=== PATIENT | male | born 1960 | race Caucasian/White ===

== ENCOUNTER 2021-07-31 12:08 | Inpatient (IN) | payer OTHER ==
[2021-07-31] MEDS ORDERED: diphenhydrAMINE 50 MG/ML 1 ML VIAL IVP STA ×2 (13:34→15:20)
[2021-07-31] MEDS ORDERED: diphenhydrAMINE 50 MG/ML 1 ML VIAL ONE ×2 (13:35→15:21)
[2021-07-31] MEDS ORDERED: ALPRAZolam 0.25 MG TAB ONE (13:36)
[2021-07-31] MEDS ORDERED: NITROGLYCERIN SL TABS 0.4 MG TAB SUBLINGUAL PRN (13:41)
[2021-07-31] MEDS ORDERED: ALPRAZolam 0.5 MG TAB PO PRN (13:41)
[2021-07-31] MEDS ORDERED: ALPRAZolam 0.25 MG TAB PO PRN (13:41)
[2021-07-31] MEDS: SODIUM CHLORIDE 0.9% 1,000 ML in EMPTY BAG 1 BAG IV SCH (13:45)
[2021-07-31] MEDS ORDERED: SODIUM CHLORIDE 0.9% 1,000 ML IV ONE (14:00)
[2021-07-31] MEDS ORDERED: ACETAMINOPHEN TAB 325 MG TAB PO PRN (15:30)
[2021-07-31] MEDS ORDERED: IPRATROPIUM-ALBUTEROL 3 ML NEB INHALATION PRN (15:38)
[2021-07-31] MEDS ORDERED: LORazepam 2 MG/ML INJ IV PRN (15:42)
[2021-07-31] MEDS ORDERED: HEPARIN SOD,PORK IN 0.45% NACL 25,000 UNIT in 0.45% NACL 1 250ML.BAG IV SCH (16:00)
[2021-07-31] MEDS: NITROGLYCERIN-D5W PMX 50 MG in DEXTROSE/WATER 1 250ML.BAG IV SCH (16:59)
[2021-07-31 18:18] LABS: Basophils % (A) 0 %; Eosinophils # (A) 0.1 k/uL (0-0.7); Eosinophils % (A) 1 %; HCT 43.5 % (39.0-53.0); HGB 14.6 gm/dL (13.0-17.5); Lymphocytes % (A) 14 %; MCH 33.6 pg (25.0-35.0); MCHC 33.6 g/dL (31.0-37.0); MCV 99.9 fL (80.0-100.0); Mean Platelet Volume 9.2; Monocytes # (A) 0.4 k/uL (0-1.0); Monocytes % (A) 5 %; Neutrophils # (A) 5.9 k/uL (1.3-7.7); Neutrophils % (A) 78 %; Platelet Count 196 k/uL (150-450); RBC 4.35 m/uL (4.30-5.90); RDW 13.5 % (11.5-15.5); WBC 7.6 k/uL (3.8-10.6)
[2021-07-31 18:37] LABS: INR 0.9 (<1.2); Prothrombin Time 10.3 sec (9.0-12.0)
[2021-07-31 18:39] LABS: Partial Thromboplastin Time 19.5 sec (22.0-30.0)
[2021-07-31] MEDS: diphenhydrAMINE 50 MG CAP PO PRN (19:24)
[2021-07-31] MEDS: METOPROLOL TARTRATE 50 MG TAB PO SCH (20:41)
[2021-07-31] MEDS: PANTOPRAZOLE 40 MG TABLET PO SCH (20:41)
[2021-07-31] MEDS: GABAPENTIN 300 MG CAP PO SCH (20:41)
[2021-07-31] MEDS: QUEtiapine 100 MG TAB PO SCH (20:42)
[2021-07-31 22:30] LABS: Glucose,Whole Blood 129 mg/dL (75-99)
[2021-08-01] MEDS: SODIUM CHLORIDE 0.9% 1,000 ML in EMPTY BAG 1 BAG IV SCH ×2 (02:39→14:34)
[2021-08-01] MEDS ORDERED: HEPARIN SODIUM,PORCINE 2,500 UNIT in SODIUM CHLORIDE 0.9% 250 ML IRRIGATION PRN (07:00)
[2021-08-01] MEDS ORDERED: HEPARIN SODIUM,PORCINE 10,000 UNIT in SODIUM CHLORIDE 0.9% 1,000 ML IRRIGATION PRN (07:00)
[2021-08-01 07:22] LABS: Basophils % (A) 0 %; Eosinophils # (A) 0.2 k/uL (0-0.7); Eosinophils % (A) 2 %; HCT 43.3 % (39.0-53.0); HGB 13.8 gm/dL (13.0-17.5); Lymphocytes # (A) 1.2 k/uL (1.0-4.8); Lymphocytes % (A) 15 %; MCH 32.8 pg (25.0-35.0); MCHC 31.9 g/dL (31.0-37.0); MCV 102.8 fL (80.0-100.0); Macrocytosis Slight; Monocytes # (A) 0.6 k/uL (0-1.0); Monocytes % (A) 7 %; Neutrophils # (A) 6.1 k/uL (1.3-7.7); Neutrophils % (A) 74 %; Platelet Count 160 k/uL (150-450); RBC 4.21 m/uL (4.30-5.90); RDW 12.9 % (11.5-15.5); WBC 8.2 k/uL (3.8-10.6)
[2021-08-01 07:30] LABS: Partial Thromboplastin Time 33.2 sec (22.0-30.0); Prothrombin Time 10.5 sec (9.0-12.0)
[2021-08-01] MEDS ORDERED: MORPHINE SULFATE 2 MG/ML SYRINGE IVP PRN (07:47)
[2021-08-01] MEDS: NITROGLYCERIN-D5W PMX 50 MG in DEXTROSE/WATER 1 250ML.BAG IV SCH ×2 (07:50→14:35)
[2021-08-01] MEDS: ASPIRIN 81 MG PO SCH (07:53)
[2021-08-01] MEDS: CITALOPRAM HYDROBROMIDE 20 MG TAB PO SCH (07:53)
[2021-08-01] MEDS: ARIPiprazole 15 MG TAB PO SCH (07:53)
[2021-08-01] MEDS: PANTOPRAZOLE 40 MG TABLET PO SCH ×2 (07:54→16:41)
[2021-08-01] MEDS: QUEtiapine 100 MG TAB PO SCH (07:54)
[2021-08-01] MEDS: METOPROLOL TARTRATE 50 MG TAB PO SCH ×2 (07:54→20:20)
[2021-08-01] MEDS: GABAPENTIN 300 MG CAP PO SCH ×2 (07:54→20:20)
[2021-08-01] MEDS: TICAGRELOR 90 MG TAB PO SCH ×2 (07:55→20:20)
[2021-08-01] MEDS ORDERED: VERAPAMIL 2.5 MG/ML 2 ML AMP ONE (08:11)
[2021-08-01] MEDS ORDERED: HEPARIN SODIUM 1,000 UN/ML (10ML VL) ONE (08:11)
[2021-08-01] MEDS ORDERED: LIDOCAINE 1% INJ 10MG/ML (20 ML MDV) ONE (08:11)
[2021-08-01] MEDS ORDERED: IV FLUID CONTINUATION 1,000 ML IV ONE (08:12)
[2021-08-01] MEDS ORDERED: fentaNYL (PF) 50 MCG/ML 2 ML AMP ONE (08:15)
[2021-08-01] MEDS ORDERED: MIDAZOLAM 2 MG/2 ML VIAL IV ONE (08:18)
[2021-08-01] MEDS ORDERED: fentaNYL (PF) 50 MCG/ML 2 ML AMP IV ONE (08:18)
[2021-08-01] MEDS ORDERED: LIDOCAINE 1% INJ 10MG/ML (20 ML MDV) SQ ONE (08:20)
[2021-08-01] MEDS ORDERED: VERAPAMIL SYRINGE (5 MG/10 ML) INTRAARTER ONE (08:21)
[2021-08-01] MEDS: HEPARIN SODIUM 1,000 UN/ML (10ML VL) IV ONE ×5 (08:28→09:35)
[2021-08-01] MEDS: NITROGLYCERIN 1000MCG/10ML SYRINGE INTRACORON ONE ×4 (08:32→09:03)
[2021-08-01] MEDS ORDERED: TICAGRELOR 90 MG TAB ONE (08:37)
[2021-08-01] MEDS ORDERED: TICAGRELOR 90 MG TAB PO ONE (08:40)
[2021-08-01] MEDS ORDERED: ASPIRIN 325 MG TAB PO SCH (09:00)
[2021-08-01] MEDS ORDERED: IOPAMIDOL-370 125ML BTL INJ ONE (09:00)
[2021-08-01] MEDS ORDERED: hydrALAZINE HCL 20 MG/ML 1 ML VIAL ONE (09:05)
[2021-08-01] MEDS: hydrALAZINE HCL 20 MG/ML 1 ML VIAL IV ONE ×2 (09:08→09:21)
[2021-08-01] MEDS ORDERED: IOPAMIDOL-370 100ML BTL INJ ONE (09:21)
[2021-08-01] MEDS ORDERED: HEPARIN SODIUM 1,000 UN/ML (10ML VL) IV ONE (09:45)
--- NOTE | 2021-08-01 09:56 | P.PRCINT ---
Percutaneous Coronary Int. - Percutaneous Coronary Intervention Percutaneous Coronary Intervention: PROCEDURES PERFORMED: Left coronary angiography, PCI proximal LAD with 3.5 x 12 mm Xience and overlapping distal with 2.5 x 12mm Xience KIKO INDICATION: Non-STEMI HISTORY: Patient is a pleasant 60-year-old male with CKD who presented to [facility] with chest pain and was found to have non-STEMI. Diagnostic heart catheterization showed obstructive LAD disease and therefore transferred to [facility] for PCI. Due to chronic kidney disease PCI was deferred until 08/01. Patient did develop recurrent chest pain somewhat improved with nitro approximately 30 minutes before scheduled case. CONSENT:I have discussed the risks, benefits and alternative therapies for the above-mentioned procedure and for both sedation/analgesia as well as necessary blood product administration, if indicated, as they pertain to this patient. The patient has indicated understanding and acceptance of the risks and procedures discussed. PROCEDURE: After the risks, benefits and alternatives of the above mentioned procedure explained in detail with the patient, informed consent was obtained. Patient was taken to the catheterization lab and prepped and draped in usual fashion. 1% lidocaine was used to anesthetize the right ulnar artery secondary to patient having a right radial loop. His right radial artery that was accessed yesterday had a palpable 2+ pulse. A 6-Cymro sheath was placed in the right ulnar artery using modified Seldinger technique. A 6-Cymro CLS 3.5 guide was used to engage the left main. A 0.014 BMW wire was passed into the distal LAD. A 2.5 x 12 mm balloon was used to predilate the l esion. A 3.5 x 12 mm Xience KIKO was placed. There was "pinching" of the diagonal branch which appeared mostly related to thrombus which somewhat improved with nitro. The diagonal branch was attempted be wired for approximately 30 minutes without success due to angulation and thrombus. There was more distal lesion and this was treated with a 2.5 x 12 mm Xience KIKO. The overlap and the mid segment of the proximal stent was postdilated with a 3.5 noncompliant balloon. Preintervention there was JAYLIN 2 flow with 95% stenosis and post intervention there was 0% stenosis and JAYLIN 3 flow of the LAD and JAYLIN 2-3 flow of the diagonal branch. The right ulnar sheath was removed and a TR band was placed with hemostasis achieved. The patient tolerated the procedure well. Patient was transported back to the post catheterization holding area in stable condition. Conscious Sedation: Patient was monitored under the direct supervision of vision of myself for conscious sedation using Versed and fentanyl for a total duration of 64 minutes HEMODYNAMICS: Ao: 144/105 SELECTIVE CORONARY ARTERIOGRAPHY: LEFT MAIN: The left main is a large caliber vessel which bifurcates into the LAD and circumflex. There is no significant stenosis. LEFT ANTERIOR DESCENDING CORONARY ARTERY: LAD is a large caliber vessel which wraps around to the apex. There is a proximal LAD 95% stenosis at the level of diagonal 1 branch with heavy thrombus burden. There is JAYLIN 2 flow. LEFT CIRCUMFLEX CORONARY ARTERY: Left circumflex is a moderate caliber vessel with a mid to distal 60-70% stenosis. RIGHT CORONARY ARTERY: Not imaged, see diagnostic report FINAL IMPRESSION: 1. CAD as described above with 95% LAD stenosis s/p PCI proximal LAD with 3.5 x 12 mm Xience and overlapping distal with 2.5 x 12mm Xience KIKO PLAN: 1. Aggressive risk factor modification per most recent ACC/AHA guidelines. 2. Continue dual antiplatelets for 12 months with aspirin and Brillinta 3. May consider further ischemic workup of circumflex lesion if still having angina symptoms.
[2021-08-01] MEDS: diphenhydrAMINE 50 MG CAP PO PRN (16:41)
[2021-08-02] MEDS: diphenhydrAMINE 50 MG CAP PO PRN ×2 (00:31→07:12)
[2021-08-02] MEDS ORDERED: hydrALAZINE HCL 10 MG TAB PO ONE (00:35)
[2021-08-02] MEDS: SODIUM CHLORIDE 0.9% 1,000 ML in EMPTY BAG 1 BAG IV SCH (04:41)
[2021-08-02 05:00] LABS: Basophils % (A) 0 %; Eosinophils # (A) 0.2 k/uL (0-0.7); Eosinophils % (A) 2 %; HCT 43.5 % (39.0-53.0); Lymphocytes # (A) 0.9 k/uL (1.0-4.8); Lymphocytes % (A) 10 %; MCHC 32.3 g/dL (31.0-37.0); MCV 102.3 fL (80.0-100.0); Macrocytosis Slight; Mean Platelet Volume 9.3; Monocytes # (A) 0.7 k/uL (0-1.0); Monocytes % (A) 7 %; Neutrophils # (A) 7.5 k/uL (1.3-7.7); Neutrophils % (A) 79 %; Platelet Count 169 k/uL (150-450); RBC 4.25 m/uL (4.30-5.90); RDW 12.9 % (11.5-15.5); WBC 9.5 k/uL (3.8-10.6)
[2021-08-02 05:26] LABS: Calcium 8.5 mg/dL (8.4-10.2); Potassium 3.8 mmol/L (3.5-5.1)
[2021-08-02] MEDS: PANTOPRAZOLE 40 MG TABLET PO SCH (06:30)
--- NOTE | 2021-08-02 07:27 | P.PN ---
Subjective Progress Note Date: 08/02/21 PROGRESS NOTE The patient is a 60-year-old male who presented to [facility] with non-STEMI. Underwent cardiac catheterization and was found to have severe obstructive disease involving the LAD. He underwent stenting of the LAD yesterday by Dr. Rowan using an ulnar approach. He is feeling well this morning, he denies any chest discomfort or dyspnea. He had an episode of hypotension yesterday, resolved IV fluid. Subsequently he was high hypertensive. His urine output has been stable. He continues to be in sinus mechanism. He continues to be on aspirin once a day, metoprolol 50 mg twice a day, Brilinta 90 mg twice a day. He is ALLERGIC to statin. PHYSICAL EXAMINATION: Blood pressure 147/98, his diastolic was in the 100 earlier heart rate 70 LUNGS: [Clear to auscultation] HEART: [Regular rate and rhythm, S1, S2. No S3. systolic ejection murmur] ABDOMEN: [Soft, nontender, no organomegaly] EXTREMETIES: [No edema, right ulnar pulse intact] LAB: Hemoglobin 14, BUN 13, creatinine 1.05. Potassium 3.8 IMPRESSION: 1. Status post non-STEMI with stenting of the LAD 2. Hypertension 3. ALLERGIES to statin PLAN: 1. Add KELBY inhibitor 2. Add Zetia 3. Increase physical activity 4. If stable probable discharge home today and follow-up as an outpatient with Dr. Rowan. Objective - Vital Signs Vital signs: Vital Signs Temp 98.3 F 08/02/21 04:00 Pulse 76 08/02/21 07:00 Resp 17 08/02/21 07:00 BP 147/98 08/02/21 07:00 Pulse Ox 94 L 08/02/21 07:00 Intake & Output 08/01/21 08/02/21 08/02/21 18:59 06:59 18:59 Intake Total 1646.646 0 Output Total 1150 1150 Balance 496.646 -1150 Weight 83 kg Intake: IV 1450 0 Normal Saline 1300 0 Intake, IV Titration 196.646 Amount Heparin Sod,Pork in 0.45% 102.296 NaCl 25,000 unit In 0.45 % NaCl 1 250ml.bag @ 12 UNITS/KG/HR 9.525 mls/hr IV .Q24H [facility] Rx#: [id number] Nitroglycerin-D5w Pmx 50 94.350 mg In Dextrose/Water 1 250ml.bag @ 25 MCG/MIN 7. 5 mls/hr IV .Q24H [facility] Rx# :[id number] Output: Urine 1150 1150 Other: # Voids 1 - Labs CBC & Chem 7: 08/02/21 04:43 08/02/21 04:43 Labs: Abnormal Lab Results - Last 24 Hours (Table) 08/01/21 08/01/21 08/02/21 Range/Units 07:03 07:03 04:43 RBC 4.21 L 4.25 L (4.30-5.90) m/uL MCV 102.8 H 102.3 H (80.0-100.0) fL Lymphocytes # 0.9 L (1.0-4.8) k/uL APTT 33.2 H (22.0-30.0) sec Chloride (98-107) mmol/L 08/02/21 Range/Units 04:43 RBC (4.30-5.90) m/uL MCV (80.0-100.0) fL Lymphocytes # (1.0-4.8) k/uL APTT (22.0-30.0) sec Chloride 110 H (98-107) mmol/L
[2021-08-02] MEDS: GABAPENTIN 300 MG CAP PO SCH (08:23)
[2021-08-02] MEDS: CITALOPRAM HYDROBROMIDE 20 MG TAB PO SCH (08:23)
[2021-08-02] MEDS: TICAGRELOR 90 MG TAB PO SCH (08:23)
[2021-08-02] MEDS: ARIPiprazole 15 MG TAB PO SCH (08:23)
[2021-08-02] MEDS: ASPIRIN 81 MG PO SCH (08:24)
[2021-08-02] MEDS: METOPROLOL TARTRATE 50 MG TAB PO SCH (08:24)
[2021-08-02] MEDS ORDERED: lisinopriL 5 MG TAB PO SCH (09:00)
[2021-08-02] MEDS ORDERED: EZETIMIBE 10 MG TAB PO SCH (09:00)
--- NOTE | 2021-08-02 09:48 | XR ---
EXAMINATION TYPE: XR chest 1V portable DATE OF EXAM: 08/02/2021 COMPARISON: None INDICATION: Short of breath TECHNIQUE: Single frontal view of the chest is obtained. FINDINGS: The heart size is normal. The pulmonary vasculature is normal. The lungs are clear. IMPRESSION: 1. No acute pulmonary process.
--- NOTE | 2021-08-02 11:35 | P.CONS ---
History of Present Illness - Reason for Consult Consult date: 08/02/21 Medical management - History of Present Illness This is a pleasant 60-year-old male who was recently admitted under cardiac services after being evaluated at [facility] by cardiology and underwent cardiac catheterization and was sent here from [facility] for further evaluation and PCI intervention. Patient is status post PCI stenting to the LAD. cardiology recommending maximizing medical management along with risk modifications and close outpatient follow-up with Dr. Rowan in his clinic in one week. Patient does have an ALLERGY to statins and is being started on Zetia. According to the report patient had some mild chronic kidney disease and was maintained on IV hydration and this caused a delay in intervention and was sent here to [facility] for further intervention. On exam patient reports to no ch est pain, palpitations, or shortness of breath. Patient was maintained on 2 L via nasal cannula and is currently on room air saturating above 94%. Patient has a past medical history of COPD/asthma, tobacco use of one pack per day, hypertension, hyperlipidemia, gastroesophageal reflux disease, and history of bipolar/schizoaffective disorder. Patient follows with Dr. Macdonald in the outpatient setting. Labs today reveal WBC within normal limits at 9.5, hemoglobin is 14, platelets are 169, sodium is 140, potassium is 3.8, BUN is 13, creatinine is 1.05, calcium is 8.5. Chest x-ray was done this morning which shows no acute process. Home medications are already been resumed. Review Of Systems: Constitutional: No fever, no chills, no night sweats. No weight change. No weakness, fatigue or lethargy. No daytime sleepiness. EENT: No headache. No blurred vision or double vision, no loss of vision. No loss of Hearing, no ringing in the ears, no dizziness. No nasal drainage or congestion. No epistaxis. No sore throat. Lungs: No shortness of breath, reports mild cough, no sputum production. No wheezing. Cardiovascular: No chest pain, no lower extremity edema. No palpitations. No paroxysmal nocturnal dyspnea. No orthopnea. No lightheadedness or dizziness. No syncopal episodes. Abdominal: No abdominal pain. No nausea, vomiting. No diarrhea. No constipation. No bloody or tarry stools.. No loss of appetite. Genitourinary: No dysuria, increased frequency, urgency. No urinary retention. Musculoskeletal: No myalgias. No muscle weakness, no gait dysfunction, no frequent falls. No back pain. No neck pain. Integumentary: No wounds, no lesions. No rash or pruritus. No unusual bruising. No change in hair or nails. Neurologic: No aphasia. No facial droop. No change in mentation. No head injury. No headache. No paralysis. No paresthesia. Psychiatric: No depression. No anxiety. No mood swings. Endocrine: No abnormal blood sugars. No weight change. No excessive sweating or thirst. No cold intolerance. Rest of the review of systems are negative except for mentioned above Active Medications Acetaminophen (Acetaminophen Tab 325 Mg Tab) 650 mg PO Q6HR PRN PRN Reason: Fever and/ or Pain Last Admin: 07/31/21 20:42 Dose: 650 mg Documented by: Albuterol/Ipratropium (Ipratropium-Albuterol 3 Ml Neb) 3 ml INHALATION RT-TID PRN PRN Reason: Shortness Of Breath Or Wheezing Alprazolam (Alprazolam 0.25 Mg Tab) 0.25 mg PO Q6HR PRN PRN Reason: Mild Anxiety Alprazolam (Alprazolam 0.5 Mg Tab) 0.5 mg PO Q6HR PRN PRN Reason: Moderate Anxiety Last Admin: 07/31/21 20:42 Dose: 0.5 mg Documented by: Aripiprazole (Aripiprazole 15 Mg Tab) 30 mg PO DAILY [facility] Last Admin: 08/02/21 08:23 Dose: 30 mg Documented by: Aspirin (Aspirin 81 Mg) 81 mg PO DAILY [facility] Last Admin: 08/02/21 08:24 Dose: 81 mg Documented by: Citalopram Hydrobromide (Citalopram Hydrobromide 20 Mg Tab) 40 mg PO DAILY [facility] Last Admin: 08/02/21 08:23 Dose: 40 mg Documented by: Diphenhydramine HCl (Diphenhydramine 50 Mg Cap) 50 mg PO QID PRN PRN Reason: Agitation Last Admin: 08/02/21 07:12 Dose: 50 mg Documented by: Ezetimibe (Ezetimibe 10 Mg Tab) 10 mg PO DAILY [facility] Last Admin: 08/02/21 08:23 Dose: 10 mg Documented by: Gabapentin (Gabapentin 300 Mg Cap) 300 mg PO BID [facility] Last Admin: 08/02/21 08:23 Dose: 300 mg Documented by: Lisinopril (Lisinopril 5 Mg Tab) 5 mg PO BID [facility] Last Admin: 08/02/21 08:23 Dose: 5 mg Documented by: Lorazepam (Lorazepam 2 Mg/Ml Inj) 1 mg IV Q6HR PRN PRN Reason: Anxiety Last Admin: 08/01/21 10:24 Dose: 1 mg Documented by: Metoprolol Tartrate (Metoprolol Tartrate 50 Mg Tab) 50 mg PO BID [facility] Last Admin: 08/02/21 08:24 Dose: 50 mg Documented by: Morphine Sulfate (Morphine Sulfate 2 Mg/Ml Syringe) 2 mg IVP Q6HR PRN PRN Reason: Pain/Discomfort Last Admin: 08/01/21 07:55 Dose: 2 mg Documented by: Nitroglycerin (Nitroglycerin Sl Tabs 0.4 Mg Tab) 0.4 mg SUBLINGUAL Q5M PRN PRN Reason: Chest Pain Pantoprazole Sodium (Pantoprazole 40 Mg Tablet) 40 mg PO AC-BID [facility] Last Admin: 08/02/21 06:30 Dose: 40 mg Documented by: Quetiapine Fumarate (Quetiapine 100 Mg Tab) 100 mg PO HS [facility] Last Admin: 08/01/21 07:54 Dose: 100 mg Documented by: Ticagrelor (Ticagrelor 90 Mg Tab) 90 mg PO BID [facility] Last Admin: 08/02/21 08:23 Dose: 90 mg Documented by: PHYSICAL EXAMINATION: GENERAL: The patient is alert and oriented x4, Well developed, well nourished. HEENT: Pupils are round and equally reacting to light. EOMI. no scleral icterus. No conjunctival pallor. Normocephalic, atraumatic. No pharyngeal erythema. No thyromegaly. CARDIOVASCULAR: S1 and S2 muffled PULMONARY: diminished breath sounds bilaterally with no wheezing or rhonchi noted. ABDOMEN: soft. Nontender on exam. non-distended, normoactive bowel sounds. No palpable organomegaly. MUSCULOSKELETAL: No joint swelling or deformity. EXTREMITIES: No cyanosis, clubbing, or pedal edema. NEUROLOGICAL: Gross neurological examination did not reveal any focal deficits. SKIN: No rashes. Assessment: NSTEMI Chest pain status post cardiac catheterization with stenting of the LAD Coronary artery disease Hypertension Hyperlipidemia COPD, not in acute exacerbation Gastroesophageal reflux disease Continued ongoing nicotine abuse, counseling was provided Chronic kidney disease History of bipolar/schizophrenia GI prophylaxis DVT prophylaxis Full code Plan: Recommend to continue with current medications and management per cardiology services. Patient was seen and evaluated at [facility] and was sent here for further evaluation as cardiac catheterization showed obstructive LAD disease and is status post left coronary angiography with PCI to the proximal LAD. Cardiology recommending maximizing medical management and close follow-up with Dr. Rowan in the outpatient setting in 1 week. Extensive discussion about smoking cessation was had with the patient as patient smokes about 1 pack per day. Discussed with the patient about continuing to use nicotine patches and a prescription was provided. Patient also reports to having home oxygen in the outpatient setting and uses it as needed. Per cardiology services patient is stable for discharge and will be discharged home today. Patient also encouraged to follow-up with his primary care provider Dr. Macdonald on discharge and again with Dr. Rowan in his office in one week. Will continue to follow with cardiology during hospitalization. Thank you for this consultation. The impression and plan of care has been dictated by Rupali Castillo, nurse practitioner as directed. Dr. Pat MD I have performed a history and examination and MDM of this patient, discussed the same with the dictator, and agree with the dictator's assessment and plan as written ,documented as a scribe. Based on total visit time, I have performed more than 50% of the visit. Any additional findings or plans will be noted. Review of Systems Constitutional: Denies chills, Denies fever Cardiovascular: Reports chest pain, Reports dyspnea on exertion Past Medical History Past Medical History: Asthma, Chest Pain / Angina, COPD, GERD/Reflux, Hypertension Additional Past Medical History / Comment(s): Tremors History of Any Multi-Drug Resistant Organisms: None Reported Past Surgical History: Tonsillectomy Additional Past Surgical History / Comment(s): Tendon in toes repaired, Urethral operation Past Anesthesia/Blood Transfusion Reactions: No Reported Reaction Past Psychological History: Bipolar, Schizoaffective Disorder, Schizophrenia Smoking Status: Current every day smoker Past Alcohol Use History: None Reported Past Drug Use History: None Reported Medications and Allergies Home Medications Medication Instructions Recorded Confirmed Type ARIPiprazole [Abilify] 30 mg PO DAILY 07/31/21 07/31/21 History Citalopram Hydrobromide [CeleXA] 40 mg PO DAILY 07/31/21 07/31/21 History Gabapentin [Neurontin] 300 mg PO BID 07/31/21 07/31/21 History QUEtiapine [SEROquel] 100 mg PO HS 07/31/21 07/31/21 History Ticagrelor [Brilinta] 90 mg PO BID #180 tab 08/01/21 Rx Aspirin 81 mg PO DAILY 08/02/21 Rx Ezetimibe [Zetia] 10 mg PO DAILY #90 tab 08/02/21 Rx Metoprolol Tartrate [Lopressor] 50 mg PO BID #180 tab 08/02/21 Rx Nicotine 21Mg/24Hr Patch [Habitrol] 1 each TRANSDERM DAILY #30 patch 08/02/21 Rx Nitroglycerin Sl Tabs [Nitrostat] 0.4 mg SUBLINGUAL Q5M PRN #25 tab 08/02/21 Rx lisinopriL [Zestril] 5 mg PO BID #180 tab 08/02/21 Rx Allergies Allergy/AdvReac Type Severity Reaction Status Date / Time Penicillins Allergy Rash/Hives Verified 07/31/21 13:33 [id number] Reductase Allergy Unknown Verified 07/31/21 13:33 Inhibitor thioridazine [From Mellaril] Allergy Dyspnea Verified 07/31/21 13:34 Physical Exam Vitals: Vital Signs Temp Pulse Resp BP Pulse Ox 08/02/21 10:59 96 08/02/21 10:00 70 24 171/116 93 L 08/02/21 09:00 98.2 F 77 22 162/106 94 L 08/02/21 08:00 77 14 147/98 96 08/02/21 07:00 76 17 147/98 94 L 08/02/21 06:00 78 15 160/100 96 08/02/21 05:00 75 17 160/100 95 08/02/21 04:00 98.3 F 71 15 169/99 97 08/02/21 03:00 75 16 158/102 97 08/02/21 02:00 71 17 144/105 97 08/02/21 01:00 74 13 163/101 97 08/02/21 00:00 98.3 F 71 16 136/101 95 08/01/21 23:00 71 17 159/102 95 08/01/21 22:00 81 13 152/112 98 08/01/21 21:27 75 19 152/112 95 08/01/21 21:00 76 21 149/101 96 08/01/21 20:00 98.7 F 73 12 148/105 98 08/01/21 19:00 73 11 L 148/105 97 08/01/21 18:00 81 15 158/96 94 L 08/01/21 17:00 65 157/108 98 08/01/21 16:45 84 132/85 96 08/01/21 16:30 69 135/97 96 08/01/21 16:15 97.9 F 65 18 132/95 97 08/01/21 16:00 70 138/99 97 08/01/21 15:45 77 154/102 94 L 08/01/21 15:30 83 146/95 97 08/01/21 15:15 78 15 140/96 96 08/01/21 15:00 62 14 115/80 98 08/01/21 14:45 64 11 L 110/75 98 08/01/21 14:30 61 13 120/77 98 08/01/21 14:15 61 8 L 108/75 97 08/01/21 14:00 62 12 95/74 97 08/01/21 13:45 61 16 104/68 98 08/01/21 13:30 60 14 109/84 97 08/01/21 13:15 59 L 10 L 118/77 98 08/01/21 13:00 68 8 L 102/65 98 08/01/21 12:45 58 L 10 L 94/70 97 08/01/21 12:30 58 L 15 99/69 98 08/01/21 12:15 61 21 83/49 98 08/01/21 12:07 98 08/01/21 12:00 57 L 12 79/53 98 08/01/21 11:45 54 L 14 83/57 98 08/01/21 11:30 55 L 14 84/51 97 Intake and Output 08/01/21 08/02/21 08/02/21 22:59 06:59 14:59 Intake Total 75 0 Output Total 1450 850 400 Balance -0231 -409 -975 Intake: IV 75 0 Normal Saline 75 0 Output: Urine 1450 850 400 Other: Voiding Method Urinal # Voids 1 0 Weight 83 kg Results CBC & Chem 7: 08/02/21 04:43 08/02/21 04:43 Labs: Abnormal Lab Results - Last 24 Hours (Table) 08/02/21 08/02/21 Range/Units 04:43 04:43 RBC 4.25 L (4.30-5.90) m/uL MCV 102.3 H (80.0-100.0) fL Lymphocytes # 0.9 L (1.0-4.8) k/uL Chloride 110 H (98-107) mmol/L Assessment and Plan Time with Patient: Greater than 30
[2021-08-02 12:48] VITALS: RESP 14; TEMP 98.8
[2021-08-02 16:19] VITALS: BP 168/101; PULSE 66
== END 2021-08-02 16:25 | disposition home or self-care (01) | DRG 247 ==
LOC: 3SCARD 18:13 → 2SICU 22:59
PROVIDERS: ADMIT Internal Medicine; ATTEND Internal Medicine
PROC: 027035Z Dilation of Coronary Artery, One Artery with Two Drug-eluting Intraluminal Devices, Percutaneous Approach (ICD-10-PCS; principal; 2021-08-01 15:40)
DX: I21.4 Non-ST elevation (NSTEMI) myocardial infarction (principal); I25.10 Atherosclerotic heart disease of native coronary artery without angina pectoris; E78.5 Hyperlipidemia, unspecified; J44.9 Chronic obstructive pulmonary disease, unspecified; K21.9 Gastro-esophageal reflux disease without esophagitis; N18.2 Chronic kidney disease, stage 2 (mild); I12.9 Hypertensive chronic kidney disease with stage 1 through stage 4 chronic kidney disease, or unspecified chronic kidney disease; F31.9 Bipolar disorder, unspecified; E78.00 Pure hypercholesterolemia, unspecified; H35.30 Unspecified macular degeneration; F17.210 Nicotine dependence, cigarettes, uncomplicated; F25.9 Schizoaffective disorder, unspecified; E88.01 Alpha-1-antitrypsin deficiency; Z82.49 Family history of ischemic heart disease and other diseases of the circulatory system; Z79.02 Long term (current) use of antithrombotics/antiplatelets; Z79.82 Long term (current) use of aspirin; Z79.899 Other long term (current) drug therapy; Z88.8 Allergy status to other drugs, medicaments and biological substances; Z88.0 Allergy status to penicillin
CPT/HCPCS: 71045; 80048; 85025; 85610; 85730

== ENCOUNTER 2022-07-24 15:59 | Emergency (ER) | payer OTHER ==
[2022-07-24 17:29] LABS: Albumin 4.5 g/dL (3.5-5.0); Calcium 9.5 mg/dL (8.4-10.2); Magnesium 1.9 mg/dL (1.6-2.3); Total Bilirubin 0.8 mg/dL (0.2-1.3); Total Protein 7.8 g/dL (6.3-8.2)
[2022-07-24 17:30] LABS: Potassium 4.8 mmol/L (3.5-5.1)
--- NOTE | 2022-07-24 17:49 | XR ---
EXAMINATION TYPE: XR chest 2V DATE OF EXAM: 07/24/2022 COMPARISON: 08/02/2021 HISTORY: Chest pain TECHNIQUE: 2 views FINDINGS: Heart is normal. Lungs are clear of infiltrate. No heart failure. There are no hilar masses . Bony thorax is intact there are chest leads. IMPRESSION: No active cardiopulmonary disease. No change.
[2022-07-24 18:09] VITALS: TEMP 97.9
[2022-07-24 19:00] LABS: Basophils # (A) 0.1 k/uL (0-0.2); Basophils % (A) 1 %; Eosinophils # (A) 0.2 k/uL (0-0.7); Eosinophils % (A) 3 %; HCT 47.6 % (39.0-53.0); HGB 16.6 gm/dL (13.0-17.5); Lymphocytes # (A) 1.5 k/uL (1.0-4.8); Lymphocytes % (A) 18 %; MCH 33.6 pg (25.0-35.0); MCHC 34.8 g/dL (31.0-37.0); MCV 96.5 fL (80.0-100.0); Mean Platelet Volume 9.4; Monocytes # (A) 0.5 k/uL (0-1.0); Monocytes % (A) 6 %; Neutrophils # (A) 5.6 k/uL (1.3-7.7); Neutrophils % (A) 70 %; Platelet Count 176 k/uL (150-450); RBC 4.94 m/uL (4.30-5.90); RDW 12.9 % (11.5-15.5); WBC 7.9 k/uL (3.8-10.6)
[2022-07-24 19:11] LABS: Partial Thromboplastin Time 24.8 sec (22.0-30.0); Prothrombin Time 10.3 sec (9.0-12.0)
[2022-07-24] MEDS ORDERED: hydrALAZINE HCL 20 MG/ML 1 ML VIAL IVP STA (19:15)
[2022-07-24 19:31] VITALS: RESP 14
--- NOTE | 2022-07-24 19:50 | ED ---
General Adult HPI - General Chief complaint: Recheck/Abnormal Lab/Rx Stated complaint: Hypertension Time Seen by Provider: 07/24/22 16:02 Source: patient, EMS Mode of arrival: EMS Limitations: no limitations - History of Present Illness Initial comments: 61-year-old male presents emergency department for hypertension. He reports that he has a history of coronary disease, COPD, hypertension. He had a stent placed one year ago. He was placed on several medications. States that he has not seen a doctor in a year and is not taking his medications. He attempted to follow with a new doctor today. He went to the clinic and they obtained his vitals. His blood pressure was so incredibly high that they called for an ambulance to take the patient to the hospital. He denies being symptomatic. No chest pain. Admits to shortness of breath however does have COPD. No headache or visual changes. No other alleviating, precipitating or modifying factors - Related Data Home Medications Medication Instructions Recorded Confirmed ARIPiprazole [Abilify] 30 mg PO DAILY 07/31/21 07/24/22 Citalopram Hydrobromide [CeleXA] 40 mg PO DAILY 07/31/21 07/24/22 QUEtiapine [SEROquel] 100 mg PO HS 07/31/21 07/24/22 Latanoprost [Latanoprost 0.005%] 1 drop BOTH EYES HS 07/24/22 07/24/22 Previous Rx's Medication Instructions Recorded Verapamil HCl [Verapamil ER] 240 mg PO DAILY #30 tab 07/24/22 Allergies Allergy/AdvReac Type Severity Reaction Status Date / Time Penicillins Allergy Rash/Hives, Verified 07/24/22 18:41 Nausea/vomiting [id number] Reductase Allergy Unknown Verified 07/24/22 18:41 Inhibitor thioridazine [From Mellaril] Allergy Dyspnea Verified 07/24/22 18:41 Review of Systems ROS Statement: Those systems with pertinent positive or pertinent negative responses have been documented in the HPI. ROS Other: All systems not noted in ROS Statement are negative. Past Medical History Past Medical History: Asthma, Chest Pain / Angina, COPD, GERD/Reflux, Hypertension Additional Past Medical History / Comment(s): Tremors History of Any Multi-Drug Resistant Organisms: None Reported Past Surgical History: Tonsillectomy Additional Past Surgical History / Comment(s): Tendon in toes repaired, Urethral operation Past Anesthesia/Blood Transfusion Reactions: No Reported Reaction Past Psychological History: Bipolar, Schizoaffective Disorder, Schizophrenia Smoking Status: Current every day smoker Past Alcohol Use History: None Reported Past Drug Use History: None Reported General Exam Limitations: no limitations General appearance: alert, in no apparent distress Head exam: Present: atraumatic, normocephalic, normal inspection Eye exam: Present: normal appearance, PERRL, EOMI. Absent: scleral icterus, conjunctival injection, periorbital swelling ENT exam: Present: normal exam, mucous membranes moist Neck exam: Present: normal inspection. Absent: tenderness, meningismus, lymphadenopathy Respiratory exam: Present: wheezes, accessory muscle use, decreased breath sounds. Absent: respiratory distress, rales, rhonchi, stridor Cardiovascular Exam: Present: regular rate, normal rhythm, normal heart sounds. Absent: systolic murmur, diastolic murmur, rubs, gallop, clicks GI/Abdominal exam: Present: soft, normal bowel sounds. Absent: distended, tenderness, guarding, rebound, rigid Extremities exam: Present: normal inspection, full ROM, normal capillary refill. Absent: tenderness, pedal edema, joint swelling, calf tenderness Back exam: Present: normal inspection Neurological exam: Present: alert, oriented X3, CN II-XII intact Psychiatric exam: Present: normal affect, normal mood Skin exam: Present: warm, dry, intact, normal color. Absent: rash Course Vital Signs 07/24/22 07/24/22 07/24/22 16:07 17:00 18:07 Temperature 98.1 F 97.9 F Pulse Rate 98 96 93 Respiratory 20 20 14 Rate Blood Pressure 197/137 185/143 180/137 O2 Sat by Pulse 95 93 L 92 L Oximetry 07/24/22 07/24/22 07/24/22 19:00 19:30 20:12 Temperature Pulse Rate 92 92 79 Respiratory 20 14 14 Rate Blood Pressure 192/138 172/120 170/120 O2 Sat by Pulse 93 L 94 L 98 Oximetry EKG Findings - EKG Comments: EKG Findings:: EKG demonstrates sinus rhythm with a rate of 94. NH interval 151. QRS 97. QTC of 410. No acute ST segment elevations or depressions Medical Decision Making - Medical Decision Making Was pt. sent in by a medical professional or institution (Dr., PA, MOBILITY SCOOTER REPAIRER, urgent care, hospital, or alf...) When possible be specific @ -Clinic Did you speak to anyone other than the patient for history (EMS, parent, family, police, friend...)? What history was obtained from this source @ -EMS Did you review nursing and triage notes (agree or disagree)? Why? @ -I reviewed and agree with nursing and triage notes Were old charts reviewed (outside hosp., previous admission, EMS record, old EKG, old radiological studies, urgent care reports/EKG's, alf records)? Report findings @ -Old charts were reviewed from 1 year ago when pt had a stemi Differential Diagnosis (chest pain, altered mental status, abdominal pain women, abdominal pain men, vaginal bleeding, weakness, fever, dyspnea, syncope, headache, dizziness, GI bleed, back pain, seizure, CVA, palpatations, mental health, musculoskeletal)? @ -htn emergency, leighann, copd exacerbation, chf exacerbation, mi EKG interpreted by me (3pts min.). @ -yes X-rays interpreted by me (1pt min.). @ -yes CT interpreted by me (1pt min.). @ -None done U/S interpreted by me (1pt. min.). @ -None done What testing was considered but not performed or refused? (CT, X-rays, U/S, labs)? Why? @ -None What meds were considered but not given or refused? Why? @ -further antihypertensive medications Did you discuss the management of the patient with other professionals (professionals i.e. TARYN Disla, MOBILITY SCOOTER REPAIRER, lab, RT, psych nurse, social scientist, clinical project coordinator, teacher, occupational health and safety officer, leather case finisher)? Give summary @ -No Was smoking cessation discussed for >3mins.? @ -No Was critical care preformed (if so, how long)? @ -No Were there social determinants of health that impacted care today? How? (Homelessness, low income, unemployed, alcoholism, drug addiction, transportation, low edu. Level, literacy, decrease access to med. care, residential, rehab)? @ -No Was there de-escalation of care discussed even if they declined (Discuss DNR or withdrawal of care, Hospice)? DNR status @ -No What co-morbidities impacted this encounter? (DM, HTN, Smoking, COPD, CAD, Cancer, CVA, ARF, Chemo, Hep., AIDS, mental health diagnosis, sleep apnea, morbi d obesity)? @ -Htn, CKD, ASCAD Was patient admitted / discharged? Hospital course, mention meds given and route, prescriptions, significant lab abnormalities, going to OR and other pertinent info. @ -Upon arrival, patient was placed into room 2. Patient arrives super hypertensive. IV is established and laboratory studies are conducted and reviewed. Chest x-ray is performed. Patient is given 20 mg of hydralazine. He is reevaluated and continues to remain extremely hypertensive. Recommended admission for hypertensive emergency however patient refused. He is capable of making decisions on his own. He is aware of the risks of leaving including permanent disability and even . Inform the patient that he'll be leaving AGAINST MEDICAL ADVICE for which she understood. He is instructed that he needs to return for any new or worsening symptoms. Patient discharged home AGAINST MEDICAL ADVICE Undiagnosed new problem with uncertain prognosis? @ -yes Drug Therapy requiring intensive monitoring for toxicity (Heparin, Nitro, Insulin, Cardizem)? @ -No Were any procedures done? @ -No Diagnosis/symptom? @ -htn emergency, copd exacerbation Acute, or Chronic, or Acute on Chronic? @ -acute on chronic Uncomplicated (without systemic symptoms) or Complicated (systemic symptoms)? @ -complicated Side effects of treatment? @ -No Exacerbation, Progression, or Severe Exacerbation? @ -Yes Poses a threat to life or bodily function? How? (Chest pain, [place], CO, pneumonia, PE, COPD, DKA, ARF, appy, cholecystitis, CVA, Diverticulitis, Homicidal, Suicidal, threat to staff... and all critical care pts) @ -yes - significant - Lab Data Result diagrams: 07/24/22 18:40 07/24/22 17:06 Lab Results 07/24/22 07/24/22 07/24/22 Range/Units 17:06 17:06 17:06 WBC (3.8-10.6) k/uL RBC (4.30-5.90) m/uL Hgb (13.0-17.5) gm/dL Hct (39.0-53.0) % MCV (80.0-100.0) fL MCH (25.0-35.0) pg MCHC (31.0-37.0) g/dL RDW (11.5-15.5) % Plt Count (150-450) k/uL MPV Neutrophils % % Lymphocytes % % Monocytes % % Eosinophils % % Basophils % % Neutrophils # (1.3-7.7) k/uL Lymphocytes # (1.0-4.8) k/uL Monocytes # (0-1.0) k/uL Eosinophils # (0-0.7) k/uL Basophils # (0-0.2) k/uL PT (9.0-12.0) sec INR (<1.2) APTT (22.0-30.0) sec Sodium 139 (137-145) mmol/L Potassium 4.8 (3.5-5.1) mmol/L Chloride 108 H (98-107) mmol/L Carbon Dioxide 24 (22-30) mmol/L Anion Gap 7 mmol/L BUN 19 (9-20) mg/dL Creatinine 1.23 (0.66-1.25) mg/dL Est GFR (CKD-EPI)AfAm 73 (>60 ml/min/1.73 sqM) Est GFR (CKD-EPI)NonAf 63 (>60 ml/min/1.73 sqM) Glucose 85 (74-99) mg/dL Calcium 9.5 (8.4-10.2) mg/dL Magnesium 1.9 (1.6-2.3) mg/dL Total Bilirubin 0.8 (0.2-1.3) mg/dL AST 38 (17-59) U/L ALT 28 (4-49) U/L Alkaline Phosphatase 132 H (38-126) U/L Troponin I 0.013 (0.000-0.034) ng/mL NT-Pro-B Natriuret Pep 71 pg/mL Total Protein 7.8 (6.3-8.2) g/dL Albumin 4.5 (3.5-5.0) g/dL 07/24/22 07/24/22 Range/Units 18:11 18:40 WBC 7.9 (3.8-10.6) k/uL RBC 4.94 (4.30-5.90) m/uL Hgb 16.6 (13.0-17.5) gm/dL Hct 47.6 (39.0-53.0) % MCV 96.5 (80.0-100.0) fL MCH 33.6 (25.0-35.0) pg MCHC 34.8 (31.0-37.0) g/dL RDW 12.9 (11.5-15.5) % Plt Count 176 (150-450) k/uL MPV 9.4 Neutrophils % 70 % Lymphocytes % 18 % Monocytes % 6 % Eosinophils % 3 % Basophils % 1 % Neutrophils # 5.6 (1.3-7.7) k/uL Lymphocytes # 1.5 (1.0-4.8) k/uL Monocytes # 0.5 (0-1.0) k/uL Eosinophils # 0.2 (0-0.7) k/uL Basophils # 0.1 (0-0.2) k/uL PT 10.3 (9.0-12.0) sec INR 1.0 (<1.2) APTT 24.8 (22.0-30.0) sec Sodium (137-145) mmol/L Potassium (3.5-5.1) mmol/L Chloride (98-107) mmol/L Carbon Dioxide (22-30) mmol/L Anion Gap mmol/L BUN (9-20) mg/dL Creatinine (0.66-1.25) mg/dL Est GFR (CKD-EPI)AfAm (>60 ml/min/1.73 sqM) Est GFR (CKD-EPI)NonAf (>60 ml/min/1.73 sqM) Glucose (74-99) mg/dL Calcium (8.4-10.2) mg/dL Magnesium (1.6-2.3) mg/dL Total Bilirubin (0.2-1.3) mg/dL AST (17-59) U/L ALT (4-49) U/L Alkaline Phosphatase (38-126) U/L Troponin I (0.000-0.034) ng/mL NT-Pro-B Natriuret Pep pg/mL Total Protein (6.3-8.2) g/dL Albumin (3.5-5.0) g/dL Disposition Clinical Impression: Hypertension Disposition: Left Against Medical Advice Condition: Serious Instructions (If sedation given, give patient instructions): Hypertension (ED) Additional Instructions: I recommended hospital admission. You are leaving against my advice. Please pick your medications up from the pharmacy and start taking it. Keep a blood pressure log and follow up with the primary care doctor for better management of your high blood pressure Prescriptions: Verapamil HCl [Verapamil ER] 240 mg PO DAILY #30 tab Is patient prescribed a controlled substance at d/c from ED?: No Referrals: [facility] [Primary Care Provider] - 1-2 days Time of Disposition: 19:50
[2022-07-24 20:13] VITALS: BP 170/120; PULSE 79
== END 2022-07-24 20:13 | disposition left against medical advice (07) ==
LOC: EC 15:59
DX: I10 Essential (primary) hypertension (principal); J44.9 Chronic obstructive pulmonary disease, unspecified; K21.9 Gastro-esophageal reflux disease without esophagitis; F25.9 Schizoaffective disorder, unspecified; F31.9 Bipolar disorder, unspecified; F17.200 Nicotine dependence, unspecified, uncomplicated; Z53.29 Procedure and treatment not carried out because of patient's decision for other reasons; Z79.899 Other long term (current) drug therapy; Z88.0 Allergy status to penicillin; Z88.8 Allergy status to other drugs, medicaments and biological substances
CPT/HCPCS: 36415; 93005; 83880; 80053; 83735; 84484; 85025; 85610; 85730; 71046; 99285; 96374; J0360